=== PATIENT | female | born 1975 | race Caucasian/White ===

== ENCOUNTER 2018-12-10 17:24 | Emergency (ER) | payer OTHER ==
[~2018-12-10] VITALS: Ht 154.9 cm; Wt 72.0 kg
[2018-12-10 17:27] VITALS: Ht 154.9 cm; Wt 72.0 kg
--- NOTE | 2018-12-10 19:10 | ERD ---
ER Documentation Chief Complaint Chief Complaint lt upper abd pain x 2 weeks with nausea HPI The patient is a 43-year-old female, presenting to the ER because of left upper quadrant abdominal pain daily for the last 2 weeks, worse with eating. She took a Motrin prior to arrival, she denies any pain now and does not want any pain m edication. She denies fever, chills, neck pain, chest pain, dyspnea, dysuria, diarrhea. She does not smoke nor drink Past medical history: Diabetes mellitus, hypertension, dyslipidemia Past surgical history: Appendectomy, 2 , hysterectomy ROS All systems reviewed and are negative except as per history of present illness. Medications Home Meds Active Scripts Pantoprazole* (Protonix*) 40 Mg Tablet.dr, 40 MG PO DAILY, #20 TAB Prov:JENNIFER RODRIGUEZ MD 12/10/18 Reported Medications Losartan Potassium* (Losartan Potassium*) 25 Mg Tablet, 25 MG PO DAILY, TAB 12/10/18 Atorvastatin Calcium* (Atorvastatin Calcium*) 20 Mg Tablet, 20 MG PO QHS, #30 TAB 12/10/18 Metformin Hcl* (Metformin Hcl*) 500 Mg Tablet, 500 MG PO WITH BREAKFAST DINNE, #60 TAB 12/10/18 Allergies Allergies: Coded Allergies: No Known Allergy (Unverified , 12/10/18) Physical Exam Vitals Vital Signs Date Temp Pulse Resp B/P (MAP) Pulse Ox O2 O2 Flow FiO2 Time Delivery Rate 12/10/18 68 19 128/87 100 Room Air 19:15 (101) 12/10/18 98.1 78 18 146/79 98 17:27 (101) Physical Exam Const: No acute distress. Head: Atraumatic. Eyes: Normal Conjunctiva. ENT: Normal External Ears, Nose and Mouth. Neck: Full range of motion. No meningismus. Resp: Clear to auscultation bilaterally. Cardio: Regular rate and rhythm. Abd: Soft, non distended, normal bowel sounds, non tender. Skin: No petechiae or rashes. Back: No midline or flank tenderness. Ext: No cyanosis, or edema. Neur: Awake and alert. No focal deficit Psych: Normal Mood and Affect. Result Diagram: 12/10/18192212/10/181922 Results 24 hrs Laboratory Tests Test 12/10/18 19:23 12/10/18 19:31 12/10/18 20:17 White Blood Count 8.0 10^3/ul Red Blood Count 4.30 10^6/ul Hemoglobin 10.8 g/dl Hematocrit 34.6 % Mean Corpuscular Volume 80.5 fl Mean Corpuscular Hemoglobin 25.1 pg Mean Corpuscular 31.2 g/dl Hemoglobin Concent Red Cell Distribution Width 17.1 % Platelet Count 322 10^3/UL Mean Platelet Volume 9.4 fl Immature Granulocytes % 0.300 % Neutrophils % 54.9 % Lymphocytes % 35.1 % Monocytes % 8.0 % Eosinophils % 1.4 % Basophils % 0.3 % Nucleated Red Blood Cells % 0.0 /100WBC Immature Granulocytes # 0.020 10^3/ul Neutrophils # 4.4 10^3/ul Lymphocytes # 2.8 10^3/ul Monocytes # 0.6 10^3/ul Eosinophils # 0.1 10^3/ul Basophils # 0.0 10^3/ul Nucleated Red Blood Cells # 0.0 10^3/ul Sodium Level 140 mmol/L Potassium Level 4.0 mmol/L Chloride Level 105 mmol/L Carbon Dioxide Level 25 mmol/L Anion Gap 10 Blood Urea Nitrogen 11 mg/dl Creatinine 0.52 mg/dl Est Glomerular Filtrat Rate mL/min > 60 mL/min Glucose Level 147 mg/dl Calcium Level 9.1 mg/dl Total Bilirubin 0.2 mg/dl Direct Bilirubin 0.00 mg/dl Indirect Bilirubin 0.2 mg/dl Aspartate Amino Transf (AST/SGOT) 25 IU/L Alanine 28 IU/L Aminotransferase (ALT/SGPT) Alkaline Phosphatase 70 IU/L Total Protein 7.5 g/dl Albumin 4.2 g/dl Globulin 3.30 g/dl Albumin/Globulin Ratio 1.27 Lipase 114 U/L POC Beta HCG, Qualitative NEGATIVE Bedside Urine pH (LAB) 7.0 Bedside Urine Protein (LAB) 1+ Bedside Urine Glucose (UA) Negative Bedside Urine Ketones (LAB) 1+ Bedside Urine Blood Negative Bedside Urine Nitrite (LAB) Negative Bedside Urine Leukocyte Esterase Negative (L Procedures/MDM MEDICAL MAKING DECISION: The patient is a 43-year-old female, presenting with acute abdominal pain of unclear etiology, resolved. She is above outpatient follow-up The differential diagnoses considered include but are not limited to cholelithiasis, cholecystitis, choledocholithiasis, cholangitis, pancreatitis, hepatitis, gastritis, peptic ulcer disease, gastric ulcer, appendicitis, cystitis, diverticulitis, partial small bowel obstruction. Departure Diagnosis: Primary Impression: Abdominal pain Additional Impression: Anemia Condition: Good Comments She was discharged with Protonix I discussed the findings with the patient. I advised the patient to follow-up with the primary physician in about 2-3 days, sooner if needed and return if any concern. Disclaimer: Inadvertent spelling and grammatical errors are likely due to EHR/dictation software use and do not reflect on the overall quality of patient care. Also, please note that the electronic time recorded on this note does not necessarily reflect the actual time of the patient encounter. JENNIFER RODRIGUEZ MD December 10, 2018 19:10
[2018-12-10] MEDS ORDERED: METF500T24 PO (19:22)
[2018-12-10] MEDS ORDERED: ATOR20TA38 PO (19:23)
[2018-12-10] MEDS ORDERED: LOSA25TA12 PO (19:23)
[2018-12-10] MEDS ORDERED: PANT40TA3 PO (20:31)
[2018-12-10 21:00] VITALS: BP 121/86; PULSE 75; RESP 16
== END 2018-12-10 21:11 | disposition home or self-care (01) ==
LOC: E/R 17:24
DX: D64.9 Anemia, unspecified (principal); E11.9 Type 2 diabetes mellitus without complications; I10 Essential (primary) hypertension; Z79.84 Long term (current) use of oral hypoglycemic drugs
CPT/HCPCS: 36415; 80053; 81003; 81025; 83690; 85025; Z7502; 99283